=== PATIENT | female | born 1955 | race Caucasian/White ===

== ENCOUNTER → 2017-09-24 15:08 | Outpatient (CLI) | payer BC, SELFPAY ==
--- NOTE | 2017-09-24 15:12 | DI.US.S_ITS ---
PROCEDURE: US PERIPH VENOUS LOW EXTREM LT INDICATIONS: rule out DVT TECHNIQUE: Real-time imaging, as well as color and pulse Doppler interrogation, were performed of the lower extremity deep veins from the inguinal ligament to the popliteal fossa. COMPARISON: None. FINDINGS: The deep veins are normally compressible, and free of intraluminal thrombus. Color and pulse Doppler demonstrate normal phasic intraluminal flow. There is normal augmentation response to distal compression maneuver. IMPRESSION: No deep venous thrombosis identified within the left lower extremity. Dictated by: Gomez JENNINGS Interpreted: Janna Otero MD on 09/24/2017 at 16:15 Approved by: Janna Otero M.D. on 09/24/2017 at 16:35
== END ==
PROVIDERS: PCP Family Medicine; Visit Provider Family Medicine
DX: I82.409 Acute embolism and thrombosis of unspecified deep veins of unspecified lower extremity (principal)
CPT/HCPCS: 93971

== ENCOUNTER → 2018-02-19 07:43 | Outpatient (CLI) | payer BC, SELFPAY ==
[2018-02-19 08:23] LABS: Add Manual Diff / Slide Review NO; Basophils Percent Auto 0.6 % (0-2); Eosinophils Percent Auto 4.2 % (2-4); Hematocrit 41.8 % (36-46); Hemoglobin 14.3 g/dL (12.0-16.0); Mean Corpuscular HGB Conc 34.1 % (30-36); Mean Corpuscular Hemoglobin 32.5 PG (26-34); Mean Corpuscular Volume 95.3 fL (80-100); Monocytes Percent Auto 7.1 % (3-14); Neutrophils Absolute Auto 3800 /uL (3000-5900); Neutrophils Percent Auto 62.1 % (50-75); Platelet Count 298 X10^3/uL (150-400); Red Blood Cell Count 4.39 X10^6/uL (4.0-5.2); White Blood Cell Count 6.1 X10^3/uL (4.5-11.0)
[2018-02-19 09:16] LABS: Alanine Aminotransferase 27 IU/L (9-52); Albumin 4.4 g/dL (3.5-5.0); Albumin Globulin Ratio 1.5 (1.0-2.8); Alkaline Phosphatase 59 U/L (38-126); Aspartate Aminotransferase 25 IU/L (14-36); BUN Creatinine Ratio 27.1 (6-22); Bilirubin Total 0.8 mg/dL (0.2-1.3); Blood Urea Nitrogen 19 mg/dL (7-17); Calcium 9.3 mg/dL (8.4-10.2); Carbon Dioxide 33 mmol/L (22-32); Chloride 101 mmol/L (98-107); Cholesterol 194 mg/dL (140-199); Estimated Glomerular Filt Rate > 60.0 mL/min (>60); Glucose 107 mg/dL (80-110); HDL Cholesterol 57 mg/dL (40-60); HEMOLYSIS < 15 (0-50); LDL Cholesterol Calculated 121 mg/dL (<100); Potassium 4.7 mmol/L (3.4-5.1); Sodium 143 mmol/L (137-145); Total Protein 7.4 g/dL (6.3-8.2); Triglycerides 81 mg/dL (35-150)
[2018-02-19 10:00] LABS: Thyroid Stimulating Hormone 2.36 uIU/mL (0.47-4.68)
== END ==
PROVIDERS: PCP Family Medicine; Visit Provider Family Medicine
DX: E78.2 Mixed hyperlipidemia (principal)
CPT/HCPCS: 36415; 80053; 80061; 84443; 85025

== ENCOUNTER → 2019-07-06 15:20 | Outpatient (CLI) | payer BC, SELFPAY ==
--- NOTE | 2019-07-06 15:22 | DI.MG.S_ITS ---
BILATERAL DIGITAL SCREENING MAMMOGRAM 3D/2D WITH CAD: 07/06/2019 CLINICAL: Routine screening. Comparison is made to exam dated: 09/04/2015 [facility]. There are scattered fibroglandular elements in both breasts. Current study was also evaluated with a Computer Aided Detection (CAD) system. No significant masses, calcifications, or other findings are seen in either breast. There has been no significant interval change. IMPRESSION: NEGATIVE There is no mammographic evidence of malignancy. A 1 year screening mammogram is recommended. This exam was interpreted at Station ID: [id number]. NOTE: For mammograms, a report in lay terms will be sent to the patient. Approximately 15% of breast malignancies will not be visualized mammographically. In the management of a palpable breast mass, a negative mammogram must not discourage biopsy of a clinically suspicious lesion. Electronically Signed By: Veronika dickson/tien:07/06/2019 17:03:10 letter sent: Normal Exam ACR BI-RADS Category 1: Negative 3341F
== END ==
PROVIDERS: PCP Family Medicine; Referring Provider Family Medicine; Visit Provider Family Medicine
DX: Z12.31 Encounter for screening mammogram for malignant neoplasm of breast (principal)
CPT/HCPCS: 77063; 77067

== ENCOUNTER → 2019-10-04 07:10 | Outpatient (CLI) | payer BC, SELFPAY ==
[2019-10-04 08:51] LABS: Alanine Aminotransferase 16 IU/L (<35); Albumin 4.3 g/dL (3.5-5.0); Albumin Globulin Ratio 1.4 (1.0-2.8); Alkaline Phosphatase 66 U/L (38-126); Aspartate Aminotransferase 25 IU/L (14-36); BUN Creatinine Ratio 25.7 (6-22); Bilirubin Total 0.7 mg/dL (0.2-1.3); Blood Urea Nitrogen 18 mg/dL (7-17); Calcium 9.5 mg/dL (8.4-10.2); Carbon Dioxide 26 mmol/L (22-32); Chloride 105 mmol/L (98-107); Cholesterol 199 mg/dL (140-199); Estimated Glomerular Filt Rate > 60.0 mL/min (>60); Glucose 107 mg/dL (80-110); HDL Cholesterol 60 mg/dL (40-60); HEMOLYSIS < 15 (0-50); LDL Cholesterol Calculated 120 mg/dL (<100); Potassium 4.8 mmol/L (3.4-5.1); Sodium 138 mmol/L (137-145); Total Protein 7.3 g/dL (6.3-8.2); Triglycerides 94 mg/dL (35-150)
[2019-10-04 08:54] LABS: Add Manual Diff / Slide Review NO; Basophils Absolute Auto 0 /uL (0-100); Basophils Percent Auto 0.7 % (0-2); Eosinophils Absolute Auto 200 /uL (0-450); Eosinophils Percent Auto 3.4 % (2-4); Hematocrit 42.3 % (36-46); Hemoglobin 14.3 g/dL (12.0-16.0); Lymphocytes Absolute Auto 1600 /uL (1100-4500); Lymphocytes Percent Auto 25.8 % (25-40); Mean Corpuscular HGB Conc 33.7 % (30-36); Mean Corpuscular Hemoglobin 32.4 PG (26-34); Mean Corpuscular Volume 96.3 fL (80-100); Monocytes Absolute Auto 500 /uL (0-900); Monocytes Percent Auto 7.6 % (3-14); Neutrophils Absolute Auto 3900 /uL (1500-7000); Neutrophils Percent Auto 62.5 % (50-75); Platelet Count 286 X10^3/uL (150-400); Red Cell Distribution Width 13.2 % (11.6-14.8); White Blood Cell Count 6.3 X10^3/uL (4.5-11.0)
== END ==
PROVIDERS: PCP Family Medicine; Referring Provider Family Medicine; Visit Provider Family Medicine
DX: E78.2 Mixed hyperlipidemia (principal)
CPT/HCPCS: 36415; 80053; 80061; 85025

== ENCOUNTER → 2020-08-03 07:11 | Outpatient (CLI) | payer BC, SELFPAY ==
[2020-08-03 08:10] LABS: Add Manual Diff / Slide Review NO; Basophils Absolute Auto 0 /uL (0-100); Basophils Percent Auto 0.7 % (0-2); Eosinophils Absolute Auto 200 /uL (0-450); Eosinophils Percent Auto 3.4 % (2-4); Hematocrit 42.3 % (36-46); Hemoglobin 14.3 g/dL (12.0-16.0); Lymphocytes Absolute Auto 1900 /uL (1100-4500); Lymphocytes Percent Auto 28.8 % (25-40); Mean Corpuscular HGB Conc 33.7 % (30-36); Mean Corpuscular Hemoglobin 32.5 PG (26-34); Mean Corpuscular Volume 96.4 fL (80-100); Monocytes Absolute Auto 500 /uL (0-900); Monocytes Percent Auto 7.2 % (3-14); Neutrophils Absolute Auto 4000 /uL (1500-7000); Neutrophils Percent Auto 59.9 % (50-75); Platelet Count 290 X10^3/uL (150-400); Red Blood Cell Count 4.39 X10^6/uL (4.0-5.2); Red Cell Distribution Width 12.9 % (11.6-14.8); White Blood Cell Count 6.7 X10^3/uL (4.5-11.0)
[2020-08-03 08:35] LABS: Alanine Aminotransferase 17 IU/L (<35); Albumin 4.1 g/dL (3.5-5.0); Albumin Globulin Ratio 1.6 (1.0-2.8); Alkaline Phosphatase 63 U/L (38-126); Aspartate Aminotransferase 25 IU/L (14-36); BUN Creatinine Ratio 21.5 (6-22); Bilirubin Total 0.6 mg/dL (0.2-1.3); Blood Urea Nitrogen 17 mg/dL (7-17); Calcium 9.5 mg/dL (8.4-10.2); Carbon Dioxide 30 mmol/L (22-32); Chloride 101 mmol/L (98-107); Cholesterol 200 mg/dL (140-199); Estimated Glomerular Filt Rate > 60.0 mL/min (>60); Globulin 2.6 g/dL (1.7-4.1); Glucose 101 mg/dL (80-110); HDL Cholesterol 56 mg/dL (40-60); HEMOLYSIS < 15 (0-50); LDL Cholesterol Calculated 124 mg/dL (<100); Potassium 4.7 mmol/L (3.4-5.1); Sodium 138 mmol/L (137-145); Total Protein 6.7 g/dL (6.3-8.2); Triglycerides 101 mg/dL (35-150)
[2020-08-03 08:36] LABS: Creatinine Urine Random 153.1 mg/dL
[2020-08-03 08:38] LABS: Microalbumi Creatinin Ratio Ur 4.5 ug/mg CR (<30); Microalbumin Urine Random 0.7 mg/dL (0-1.6)
[2020-08-03 09:04] LABS: TSH w/ Reflex to FT4 2.83 uIU/mL (0.47-4.68)
== END ==
PROVIDERS: PCP Family Medicine; Referring Provider Family Medicine; Visit Provider Family Medicine
DX: E78.2 Mixed hyperlipidemia (principal); I10 Essential (primary) hypertension; Z13.29 Encounter for screening for other suspected endocrine disorder
CPT/HCPCS: 36415; 80053; 80061; 82043; 82570; 84443; 85025

== ENCOUNTER → 2021-08-01 15:05 | Outpatient (CLI) | payer BC, SELFPAY ==
--- NOTE | 2021-08-01 15:07 | DI.MG.S_ITS ---
BILATERAL DIGITAL SCREENING MAMMOGRAM 3D/2D WITH CAD: 08/01/2021 CLINICAL: Routine screening. Comparison is made to exams dated: 07/06/2019 mammogram and 09/04/2015 mammogram - [facility]. There are scattered fibroglandular elements in both breasts. Current study was also evaluated with a Computer Aided Detection (CAD) system. No significant masses, calcifications, or other findings are seen in either breast. There has been no significant interval change. IMPRESSION: NEGATIVE There is no mammographic evidence of malignancy. A 1 year screening mammogram is recommended. This exam was interpreted at Station ID: [id number]. NOTE: For mammograms, a report in lay terms will be sent to the patient. Approximately 15% of breast malignancies will not be visualized mammographically. In the management of a palpable breast mass, a negative mammogram must not discourage biopsy of a clinically suspicious lesion. Electronically Signed By: Jaskaran Cruz M.D., jr/tien:08/02/2021 08:02:31 letter sent: Normal Exam ACR BI-RADS Category 1: Negative 3341F
== END ==
PROVIDERS: PCP Family Medicine; Referring Provider Family Medicine; Visit Provider Family Medicine
DX: Z12.31 Encounter for screening mammogram for malignant neoplasm of breast (principal)
CPT/HCPCS: 77063; 77067

== ENCOUNTER → 2022-06-10 14:58 | Outpatient (CLI) | payer MEDICARE, SELFPAY ==
--- NOTE | 2022-06-10 14:59 | DI.RAD.S_ITS ---
PROCEDURE: XR CHEST 2V INDICATIONS: cough TECHNIQUE: 2 views of the chest were acquired. COMPARISON: None. FINDINGS: Surgical changes and devices: Cholecystectomy clips.. Lungs and pleura: Lungs are clear. No pleural effusions or pneumothorax. Mediastinum: Mediastinal contours are normal. Heart size is normal. Bones and chest wall: No suspicious bony abnormalities. Soft tissues appear unremarkable. IMPRESSION: No acute cardiopulmonary disease process. Dictated by: Lauren Atkins MD, PhD on 06/10/2022 at 15:58 Approved by: Lauren Atkins MD, PhD on 06/10/2022 at 15:58
== END ==
PROVIDERS: PCP Family Medicine; Referring Provider Nurse Practitioner Family; Visit Provider Nurse Practitioner Family
DX: R05.9 Cough, unspecified (principal)
CPT/HCPCS: 71046

== ENCOUNTER → 2022-08-05 10:58 | Outpatient (CLI) | payer MEDICARE, SELFPAY ==
--- NOTE | 2022-08-05 11:00 | DI.MG.S_ITS ---
BILATERAL DIGITAL SCREENING MAMMOGRAM 3D/2D WITH CAD: 08/05/2022 CLINICAL: Routine screening. Comparison is made to exams dated: 08/01/2021 mammogram, 07/06/2019 mammogram, and 09/04/2015 mammogram - [facility]. There are scattered areas of fibroglandular density in both breasts (category b / 25%-50% glandular tissue). Current study was also evaluated with a Computer Aided Detection (CAD) system. No significant masses, calcifications, or other findings are seen in either breast. There has been no significant interval change. IMPRESSION: NEGATIVE There is no mammographic evidence of malignancy. A 1 year screening mammogram is recommended. Based on the Tyrer Cuzick model (a risk assessment model) the patient's lifetime risk is 7.6% and her 10 year risk is 3.7%. According to the ACR, ACS, and NCCN guidelines, an annual breast MRI exam along with mammogram is recommended if the patient's lifetime risk is 20% or greater. This exam was interpreted at Station ID: [id number]. NOTE: For mammograms, a report in lay terms will be sent to the patient. Approximately 15% of breast malignancies will not be visualized mammographically. In the management of a palpable breast mass, a negative mammogram must not discourage biopsy of a clinically suspicious lesion. Electronically Signed By: Rudy smith/tien:08/05/2022 13:07:32 letter sent: Normal Exam ACR BI-RADS Category 1: Negative 3341F
--- NOTE | 2022-08-05 11:28 | DI.DEXA.S_ITS ---
Indication: osteopenia; Referring Provider: MAHIN MOTTA Study: Bone densitometry was performed. Exam Date: August 05, 2022 Accession number: [id number] Bone Density: Region BMD T-score Z-score Classification AP Spine(L1, L2, L4) 0.859 -1.6 0.2 Osteopenia Femoral Neck (Left) 0.675 -1.6 -0.1 Osteopenia Total Hip (Left) 0.812 -1.1 0.2 Osteopenia Femoral Neck (Right) 0.701 -1.3 0.2 Osteopenia Total Hip (Right) 0.885 -0.5 0.8 Normal Total Hip Mean 0.849 -0.8 0.5 Normal World Health Organization criteria for BMD impression classify patients as: Normal (T-score at or above -1.0), Osteopenia (T-score between -1.0 and -2.5), or Osteoporosis (T-score at or below -2.5). 10-year Fracture Risk: FRAX not reported because: Premenopausal woman Previous Exams: -- Region Exam Age BMD T-score BMD Change BMD Change Date g/cm2 vs Baseline vs Previous -- AP Spine (L1-L2,L4) 08/05/2022 67 0.859 -1.6 -0.003 (-0.4%)# -0.003 (-0.4%)# 09/04/2015 60 0.862 -1.6 Total Hip(Left) 08/05/2022 67 0.812 -1.1 0.028 (3.5%)# 0.028 (3.5%)# 09/04/2015 60 0.784 -1.3 Total Hip(Right) 08/05/2022 67 0.885 -0.5 0.072 (8.9%)# 0.072 (8.9%)# 09/04/2015 60 0.813 -1.1 -- *Denotes significance at 95% confidence level, LSC for AP Spine = 0.022 g/cm2, LSC for Total Hip = 0.027 g/cm2 # Denotes dissimilar scan types or analysis methods Impression: The patient's bone mass is within expected range for age, gender and ethnicity. No significant bone loss was observed. Discussion: BONE DENSITY IS WITHIN EXPECTED LIMITS FOR AGE, SEX AND RACE. Bone density is within expected limits for age, sex and race at all sites measured. The patient should follow a healthful lifestyle (good nutrition with adequate calcium and vitamin D, and appropriate weight-bearing exercise). Follow-Up: Consider repeating this study in 2 to 3 years to reassess this patient's status, or sooner if there is some new clinical indication. Reported by: TANJA MONK MD on 08/05/2022 11:37:00 AM.
== END ==
PROVIDERS: PCP Family Medicine; Referring Provider Family Medicine; Visit Provider Family Medicine
DX: Z12.31 Encounter for screening mammogram for malignant neoplasm of breast; M81.0 Age-related osteoporosis without current pathological fracture
CPT/HCPCS: 77063; 77067; 77080

== ENCOUNTER → 2022-12-24 07:16 | Outpatient (CLI) | payer MEDICARE, SELFPAY ==
[2022-12-24 08:04] LABS: Add Manual Diff / Slide Review NO; Basophils Absolute Auto 0 /uL (0-100); Basophils Percent Auto 0.4 % (0-2); Eosinophils Absolute Auto 200 /uL (0-450); Eosinophils Percent Auto 3.5 % (2-4); Hematocrit 41.5 % (36-46); Hemoglobin 14.1 g/dL (12.0-16.0); Lymphocytes Absolute Auto 1400 /uL (1100-4500); Lymphocytes Percent Auto 23.2 % (25-40); Mean Corpuscular Hemoglobin 32.2 PG (26-34); Monocytes Absolute Auto 500 /uL (0-900); Monocytes Percent Auto 8.1 % (3-14); Neutrophils Absolute Auto 3800 /uL (1500-7000); Neutrophils Percent Auto 64.8 % (50-75); Platelet Count 264 X10^3/uL (150-400); Red Blood Cell Count 4.38 X10^6/uL (4.0-5.2); Red Cell Distribution Width 13.2 % (11.6-14.8); White Blood Cell Count 5.9 X10^3/uL (4.5-11.0)
[2022-12-24 08:26] LABS: Alanine Aminotransferase 21 IU/L (<35); Albumin 4.2 g/dL (3.5-5.0); Albumin Globulin Ratio 1.5 (1.0-2.8); Alkaline Phosphatase 71 U/L (38-126); Aspartate Aminotransferase 26 IU/L (14-36); BUN Creatinine Ratio 17.6 (6-22); Bilirubin Total 0.8 mg/dL (0.2-1.3); Blood Urea Nitrogen 13 mg/dL (7-17); Calcium 9.3 mg/dL (8.4-10.2); Carbon Dioxide 27 mmol/L (22-32); Chloride 100 mmol/L (98-107); Cholesterol 197 mg/dL (140-199); Estimated Glomerular Filt Rate > 60 mL/min (>60); Globulin 2.8 g/dL (1.7-4.1); Glucose 104 mg/dL (80-110); HDL Cholesterol 56 mg/dL (40-60); HEMOLYSIS < 15 (0-50); LDL Cholesterol Calculated 121 mg/dL (<100); Potassium 4.5 mmol/L (3.4-5.1); Sodium 136 mmol/L (137-145); Triglycerides 99 mg/dL (35-150)
[2022-12-24 08:47] LABS: Thyroid Stimulating Hormone 3.13 uIU/mL (0.47-4.68)
== END ==
PROVIDERS: PCP Family Medicine; Referring Provider Family Medicine; Visit Provider Family Medicine
DX: E78.2 Mixed hyperlipidemia (principal); I10 Essential (primary) hypertension
CPT/HCPCS: 36415; 80053; 80061; 84443; 85025

== ENCOUNTER → 2023-02-09 14:05 | Outpatient (CLI) | payer MEDICARE, SELFPAY ==
[2023-02-10 10:36] LABS: Fecal Immunochemical Test Negative (Negative)
== END ==
PROVIDERS: PCP Family Medicine; Referring Provider Family Medicine; Visit Provider Family Medicine
DX: Z00.00 Encounter for general adult medical examination without abnormal findings (principal)
CPT/HCPCS: 82274

== ENCOUNTER 2024-03-13 08:48 | Emergency (ER) | payer MEDICARE, SELFPAY ==
[2024-03-13 08:59] VITALS: BP 163/94; PULSE 71; RESP 18; TEMP 36.7; O2SAT 96; BMI 32.3
--- NOTE | 2024-03-13 11:26 | ED_ITS ---
HPI - Skin/Abscess/Foreign Bdy <Shantelle Medel PA-C - Last Filed: 03/13/24 19:15> General Chief complaint: Skin/Abscess/Foreign Body Stated complaint: infection in pointer finger on right hand Time Seen by Provider: 03/13/24 11:16 Source: patient Mode of arrival: Family Vehicle Limitations: no limitations History of Present Illness HPI narrative: Ms. Huang is a very pleasant 68-year-old female with a past medical history of hypertension, hyperlipidemia, GERD who presents to the emergency department for right index finger infection x4 days. Patient reports getting a manicure and a few days later she developed redness & swelling on the distal aspect of her right index finger. She went to the walk-in clinic on 03/09/2024 and was treated with Keflex for cellulitis of the right index finger. Infection did not improve so yesterday she was switched to doxycycline and has taken a total of 3 doses but continues to have swelling and pain of the right distal index finger. She denies any fevers, chills, abdominal pain, nausea, vomiting, erythema or increased warmth of the remaining right hand. She is right-hand dominant. Related Data Previous Rx's Medication Instructions Recorded zolpidem 5 mg tablet (Ambien) 5 mg PO BEDTIME PRN insomnia #10 12/19/22 tabs clonazepam 0.5 mg tablet 0.25 mg (1/2 x 0.5 mg) PO DAILY 06/03/23 #10 tabs lisinopril 20 1 tab PO DAILY #90 tabs 06/16/23 mg-hydrochlorothiazide 25 mg tablet metoprolol succinate 50 mg 50 mg PO BID #180 tabs 08/03/23 tablet,extended release 24 hr doxycycline monohydrate 100 mg 100 mg PO BID 10 days #20 caps 03/12/24 capsule Allergies Allergy/AdvReac Type Severity Reaction Status Date / Time erythromycin base Allergy Mild VOMITING Verified 10/08/23 13:06 [ERYTHROMYCIN BASE] Review of Systems <Shantelle Medel PA-C - Last Filed: 03/13/24 19:15> Review of Systems ROS Unobtainable: All systems reviewed & are unremarkable except as noted in HPI and below Patient History <Shantelle Medel PA-C - Last Filed: 03/13/24 19:15> Medical History Achilles tendinitis of left lower extremity Insomnia Medicare annual wellness visit, initial Skin lesion Preventative health care Chronic cough (2005) Ankle pain (2003) Hypertension (2008) GERD (gastroesophageal reflux disease) (2005) Vertigo (1998) Chicken pox (1963) Plantar warts (1974) Rosacea (1979) Genital warts (1993) Anxiety (06/26/16) Surgical History Anesthesia History of verrucae (wart) excision (1993) Status post cholecystectomy (1991) Family History Brother Age: 78 Hypertension Father Hypertension Stroke Pulmonary fibrosis Mother Hypertension Grandfather Aneurysm Grandmother No problems noted. Grandfather Hodgkin's disease Grandmother No problems noted. Social History Smoking Status: Never smoker Smoking Status: Never smoker alcohol intake frequency: 0-2 drinks per day Substance Use Type: does not use Exam <Shantelle Medel PA-C - Last Filed: 03/13/24 19:15> Narrative Exam Narrative: GENERAL: 68 year old patient appears stated age. Well-developed patient, in no acute distress. HEAD: Atraumatic. Normocephalic. EYES: Pupils equal round and reactive. Extraocular motions intact. No scleral icterus. No injection or drainage. ENT: Nose without bleeding, purulent drainage. Throat without erythema, tonsillar hypertrophy or exudate. Airway patent. NECK: Trachea midline. Non tender CARDIOVASCULAR: Regular rate and rhythm. RESPIRATORY: Speaking in clear full sentences, no respiratory distress. EXTREMITIES: No edema or joint tenderness. BACK: Nontender without deformity or crepitance. No flank tenderness. NEURO: AOx3. SKIN: Right index finger with erythema, swelling, and fluctuance of the lateral nail fold consistent with lateral nail fold paronychia. Full isolated flexion and extension of the DIP, PIP, MCP of the right index finger intact. No streaking erythema of the right hand. Initial Vital Signs Initial Vital Signs: Vital Signs Temperature 98.1 F 03/13/24 08:59 Pulse Rate 71 03/13/24 08:59 Respiratory Rate 18 03/13/24 08:59 Blood Pressure 163/94 H 03/13/24 08:59 Pulse Oximetry 96 03/13/24 08:59 Oxygen Delivery Method Room Air 03/13/24 08:59 <Ani Mcclendon DO - Last Filed: 03/17/24 08:19> Initial Vital Signs Initial Vital Signs: Vital Signs Temperature 98.1 F 03/13/24 08:59 Pulse Rate 71 03/13/24 08:59 Respiratory Rate 18 03/13/24 08:59 Blood Pressure 163/94 H 03/13/24 08:59 Pulse Oximetry 96 03/13/24 08:59 Oxygen Delivery Method Room Air 03/13/24 08:59 Procedures <Shantelle Medel PA-C - Last Filed: 03/13/24 19:15> Abscess I/D I&D #1: Time of procedure: 13:00 Site: hand (right index finger) Side (if applicable): right Sedation/analgesia: none Local Anesthetic: lidocaine 1% (right index finger digital block) Amount of anesthesia used (mL): 1 Technique: incised with #11 blade Amount of fluid expressed (mL): 2 Irrigation: Yes Packing used?: none Course <Shantelle Medel PA-C - Last Filed: 03/13/24 19:15> Orders Ordered: Discontinued Medications Ibuprofen (Ibuprofen 400 Mg Tablet) 400 mg PO NOW ONE Stop: 03/13/24 11:26 Last Admin: 03/13/24 11:34 Dose: 400 mg Documented By: ROXIE Lidocaine HCl (Lidocaine 1% 20 Ml) 3 ml SUBCUT NOW ONE Stop: 03/13/24 12:27 Last Admin: 03/13/24 12:35 Dose: 3 ml Documented By: ROXIE Lidocaine/Prilocaine (Lidocaine/Prilocaine 30 Gm) 1 applic TOP NOW ONE Stop: 03/13/24 11:25 Last Admin: 03/13/24 11:31 Dose: Not Given Documented By: ROXIE Lidocaine/Prilocaine (Lidocaine/Prilocaine 5 Gm) 5 gm TOP NOW ONE Stop: 03/13/24 11:32 Last Admin: 03/13/24 11:34 Dose: 5 gm Documented By: ROXIE Vital Signs Vital signs: Vital Signs - 8 hr 03/13/24 13:28 Pulse Rate 60 Respiratory Rate 16 Blood Pressure 175/82 H Pulse Oximetry 95 Oxygen Delivery Method Room Air <Ani Mcclendon DO - Last Filed: 03/17/24 08:19> Orders Ordered: Discontinued Medications Ibuprofen (Ibuprofen 400 Mg Tablet) 400 mg PO NOW ONE Stop: 03/13/24 11:26 Last Admin: 03/13/24 11:34 Dose: 400 mg Documented By: ROXIE Lidocaine HCl (Lidocaine 1% 20 Ml) 3 ml SUBCUT NOW ONE Stop: 03/13/24 12:27 Last Admin: 03/13/24 12:35 Dose: 3 ml Documented By: ROXIE Lidocaine/Prilocaine (Lidocaine/Prilocaine 30 Gm) 1 applic TOP NOW ONE Stop: 03/13/24 11:25 Last Admin: 03/13/24 11:31 Dose: Not Given Documented By: ROXIE Lidocaine/Prilocaine (Lidocaine/Prilocaine 5 Gm) 5 gm TOP NOW ONE Stop: 03/13/24 11:32 Last Admin: 03/13/24 11:34 Dose: 5 gm Documented By: ROXIE Vital Signs Vital signs: Vital Signs - 8 hr 03/13/24 13:28 Pulse Rate 60 Respiratory Rate 16 Blood Pressure 175/82 H Pulse Oximetry 95 Oxygen Delivery Method Room Air MDM - Skin/Abscess/Foreign Bdy <Shantelle Medel PA-C - Last Filed: 03/13/24 19:15> MDM Narrative Medical decision making narrative: 68-year-old female with a past medical history of hypertension, hyperlipidemia, GERD who presents to the emergency department for right index finger infection x4 days. Differential diagnosis includes but is not limited to cellulitis, abscess, flexor tenosynovitis, paronychia, felon, etc.. On exam patient is in no acute distress, nontoxic appearing, full isolated range of motion of the right index finger and remaining hand. She has redness, swelling, fluctuance of the distal right index finger nail bed consistent with a paronychia. After shared decision-making, will proceed with drainage of the paronychia and continuation of the oral doxycycline. Discussed wound care. We will use topical numbing and oral ibuprofen prior to I&D for pain relief. Patient tolerated drainage of paronychia well. Wound culture obtained. Discussed proper wound care and signs and symptoms of worsening infection to return to the ER for. Patient will continue with warm compresses, oral doxycycline, PCP follow-up. Patient is agreeable to the plan and stable for discharge home. Discharge Plan Departure Patient Disposition: Home Clinical Impression: Paronychia Instructions: DI for Skin Abscess Activity Restrictions/Additional Instructions: Today we drained and infection on your index finger. Please keep this area clean, dry, covered at all times. You may apply antibiotic ointment to this area 2 times daily. Please use warm compresses or warm soaks to help with d rainage. Complete the full course of antibiotics. Take ibuprofen and Tylenol alternating for pain and inflammation. Return to the emergency room if you develop any fevers, chills, increased redness or red streaking of the finger or hand, or any other concerns. Prescriptions: No Action doxycycline monohydrate 100 mg capsule 100 mg PO BID 10 Days Qty: 20 0RF zolpidem [Ambien] 5 mg tablet 5 mg PO BEDTIME PRN (Reason: insomnia) Qty: 10 1RF Rx Instructions: 1-2 tabs for sleep as directed clonazepam 0.5 mg tablet 0.25 mg PO DAILY Qty: 10 0RF lisinopril-hydrochlorothiazide 20-25 mg tablet 1 tab PO DAILY Qty: 90 3RF Rx Instructions: Initially start with half a tablet in the morning for 6 days then advance to 1 full tablet metoprolol succinate 50 mg tablet extended release 24 hr 50 mg PO BID Qty: 180 3RF Rx Instructions: start taking twice a day Referrals: Irving Acosta DO [Primary Care Provider] - Stand Alone Forms: Patient Portal/API/Survey ED Sign-out <Ani Mcclendon DO - Last Filed: 03/17/24 08:19> Cosign ED Attending Arielature Attestation: I was available for consultation.
[2024-03-13] MEDS: IBUPROFEN 400 MG TABLET PO (11:34)
[2024-03-13] MEDS: LIDOCAINE/PRILOCAINE 5 GM TOP (11:34)
[2024-03-13] MEDS: LIDOCAINE 1% 20 ML 3 ML SUBCUT (12:35)
[2024-03-13 13:28] VITALS: BP 175/82; PULSE 60; RESP 16; O2SAT 95
== END 2024-03-13 13:28 | disposition home or self-care (01) ==
PROVIDERS: Emergency Provider Physician Assistant; PCP Family Medicine
DX: L03.011 Cellulitis of right finger (principal)
CPT/HCPCS: 10060; 87070; 87077; 87147; 87186; 87205; 99283

== ENCOUNTER → 2024-11-09 07:18 | Outpatient (CLI) | payer MEDICARE, SELFPAY ==
[2024-11-09 07:48] LABS: Add Manual Diff / Slide Review NO; Hematocrit 40.7 % (36-46); Hemoglobin 13.7 g/dL (12.0-16.0); Lymphocytes Absolute Auto 1500 /uL (1100-4500); Mean Corpuscular HGB Conc 33.7 % (30-36); Mean Corpuscular Hemoglobin 32.5 PG (26-34); Mean Corpuscular Volume 96.3 fL (80-100); Platelet Count 265 X10^3/uL (150-400)
[2024-11-09 07:58] LABS: Hemoglobin A1C% w Est Avg Glu 5.1 % (4.0-6.0)
[2024-11-09 08:16] LABS: Alanine Aminotransferase 16 IU/L (<35); Albumin 4.3 g/dL (3.5-5.0); Albumin Globulin Ratio 1.4 (1.0-2.8); Alkaline Phosphatase 73 U/L (38-126); Blood Urea Nitrogen 17 mg/dL (7-17); Calcium 9.3 mg/dL (8.4-10.2); Carbon Dioxide 26 mmol/L (22-32); Chloride 101 mmol/L (98-107); Estimated Glomerular Filt Rate > 60 mL/min (>60); Globulin 3.0 g/dL (1.7-4.1); Glucose 96 mg/dL (70-99); HEMOLYSIS < 15 (0-50); Potassium 4.8 mmol/L (3.4-5.1); Sodium 134 mmol/L (137-145); Total Protein 7.3 g/dL (6.3-8.2)
[2024-11-09 08:44] LABS: TSH w/ Reflex to FT4 1.65 uIU/mL (0.47-4.68)
== END ==
PROVIDERS: PCP Family Medicine; Referring Provider Physician Assistant; Visit Provider Physician Assistant
DX: E78.2 Mixed hyperlipidemia (principal); I10 Essential (primary) hypertension; E66.01 Morbid (severe) obesity due to excess calories
CPT/HCPCS: 36415; 80053; 83036; 84443; 85025

== ENCOUNTER → 2025-02-28 12:29 | Outpatient (CLI) | payer MEDICARE, SELFPAY ==
--- NOTE | 2025-02-28 12:30 | DI.MG.S_ITS ---
MM screening mammo BI: 02/28/2025. BI-RADS: 1 CLINICAL: 69-year old female for bilateral screening mammogram. Tyrer-Cuzick lifetime risk of 8.0%. No personal or first-degree family history of breast cancer. PRIOR EXAMS 08/05/2022, 08/01/2021, 07/06/2019. MAMMOGRAPHY TECHNIQUE: 2D and 3D (tomosynthesis) digital mammographic views obtained, with additional images as needed for full coverage. Current study was also evaluated with a Computer Aided Detection (CAD) system. DENSITY B. There are scattered areas of fibroglandular density. MAMMOGRAPHY FINDINGS Bilateral: No suspicious mass, asymmetry, microcalcification, or other abnormality seen. IMPRESSION: * No evidence of malignancy. RECOMMENDATIONS Bilateral * Annual screening mammography. OVERALL ASSESSMENT CATEGORY BI-RADS-1: Negative. The [employer] recommends annual screening mammography beginning at age 40 for women with average risk of breast cancer. ELECTRONICALLY SIGNED: Saundra Huertas M.D. on 03/01/2025 at 09:00:26 AM PT Interpreting Station ID: [id number]
== END ==
LOC: MAMMO 12:29
PROVIDERS: PCP Family Medicine; Referring Provider Family Medicine; Visit Provider Family Medicine
DX: Z12.31 Encounter for screening mammogram for malignant neoplasm of breast (principal)
CPT/HCPCS: 77063; 77067